=== PATIENT | female | born 1990 | race Caucasian/White ===

== ENCOUNTER 2019-03-22 10:47 | Emergency (ER) | payer OTHER ==
[2019-03-22 11:15] VITALS: BP 97/64; PULSE 60; TEMP 99.1; BMI 20.2
--- NOTE | 2019-03-22 12:02 | PDOC ---
History of Present Illness - General Chief Complaint: Migraine Headache Stated Complaint: WEIRD FEELING IN HEAD Time Seen by Provider: 03/22/19 10:55 History Source: Patient Exam Limitations: No Limitations - History of Present Illness Initial Comments: 03/22/19 11:59 28y F presents for evaluation of a 'strange sensation in her head'. Pt states she occasionally feels a 'strnge sensation in her head' that typically lasts for a few seconds, then goes away and recurrs occasionally - She is unable to further describe the pain, but notse that it is not painful, not uncomfortable, not lightheaded, not vertigo, not tingling, not sharp/ pressure, not like her migraines. pt also remembers feeling briefly being sob las tnight when she was sleeping, but resolved. no associated cp, cough, f/c, leg edema. pt denies any associated headache, lightehadedness, vision changes, numbness/ tingling/weakness, dysarthria, cp, palpitations, n/v, abd pain, back pain, neck pain, fever/chlls, cough, diarrhea, melena, bpr, urinary frequency, dysuria. Pt denies any calderón - went for a run today without other symptoms. Pt does endorses having occasoinal episodes of vertigo, where when she is sitting at he desk, she will feel a momentary episode of feeling off balance before resolving. No symptmos currently. Pt also notes that she has had a mass on her R shoulder for a while that was told it was a lipoma. it does not hurt. LMP 03/14 PMHx: Migraine patel social: denies ivdu PMD: [facility] Past History - Past Medical History Allergies/Adverse Reactions: Allergies Allergy/AdvReac Type Severity Reaction Status Date / Time egg Allergy Verified 03/22/19 10:49 Home Medications: Ambulatory Orders NK [No Known Home Medication] 03/22/19 COPD: No - Suicide/Smoking/Psychosocial Hx Smoking History: Never smoked Have you smoked in the past 12 months: No Information on smoking cessation initiated: No Hx Alcohol Use: Yes (WEEKENDS) Review of Systems - Review of Systems Able to Perform ROS?: Yes Comments:: 03/22/19 12:03 Constitutional - no reported Fever, Chills, HEENT: no reported vision changes, sore throat Respiratory: no reported cough, sob, hemoptysis Cardiac: no reported chest pain, palpitations, light headedness, leg swelling Abd/GI: no reported abd pain, nausea, vomiting, blood per rectum, melena, diarrhea : no reported dysuria, frequency, discharge Musculskelatal - no reported back pain, joint swelling skin - +arm mass no reported bruising, erythema, rash neurological: +weird intermittent sensation in her head no reported headache, numbness, focal weakness, tingling, ataxia, hematologic: no reported easy bruising, easy bleeding *Physical Exam - Vital Signs Last Vital Signs Temp Pulse Resp BP Pulse Ox 99.1 F 60 20 97/64 100 03/22/19 10:48 03/22/19 10:48 03/22/19 10:48 03/22/19 10:48 03/22/19 10:48 - Physical Exam Comments: 03/22/19 12:05 GENERAL: The patient is awake, alert, and fully oriented, Nontoxic - in no acute distress. HEAD: Normocephalic, atraumatic. EYES: extraocular movements intact, sclera anicteric, conjunctiva clear. ENT: Normal voice, Moist mucous membranes. NECK: Normal range of motion, supple LUNGS: Breath sounds equal, clear to auscultation bilaterally. No wheezes, no rhonchi, no rales. HEART: Regular rate and rhythm, normal S1 and S2 without murmur, rub or gallop. ABDOMEN: Soft, nontender, . No guarding, no rebound. No CVA tenderness EXTREMITIES: ~5x5cm mass that is soft, nontender, non erythemsous, non indurated over the lateral aspect of R shoulder, Normal range of motion of extremities, no edema. NEUROLOGICAL: No facial assymetry, Normal speech, moving all 4 ext spontnaeously and symmetrically, normal gait PSYCH: Normal mood, normal affect. SKIN: Warm, Dry, normal turgor, Medical Decision Making - Medical Decision Making 03/22/19 12:06 28y F hx of migraines presents for evaluation of several complaints including a 'weird sensation in her head', intermittent/episodic vertigo, sob, arm mass suspect her vrtigo may be bbpv - currently asymptmatic with intact neuro exam arm mass - c/w lipoma, no signs of abcess will refer pt to PMD for further mangement 03/22/19 12:10 I discussed the physical exam findings, ancillary test results and final diagnoses with the patient. I answered all of the patient's questions. The patient was satisfied with the care received and felt comfortable with the discharge plan and treatment plan. The patient will call their primary care physician within 24 hours to arrange follow-up and will return to the Emergency Department with any new, persistent or worsening symptoms. *DC/Admit/Observation/Transfer Diagnosis at time of Disposition: Lightheaded - Discharge Dispostion Disposition: HOME Condition at time of disposition: Improved Decision to Admit order: No - Referrals Referrals: Moustapha Clark MD [Staff Physician] - [facility] [place] [facility] [place] [Provider Group] - Patient Instructions Additional Instructions: Return to the emergency department immediately with ANY new, persistent or worsening symptoms. You MUST ollow up with a primary care doctor for a complete evaluation of your symptoms. Results were discussed with you. Please make sure your doctor reviews the results of your emergency evaluation. Print Language: EAST [place] - Post Discharge Activity
--- NOTE | 2019-03-22 16:57 | EKG ---
Test Reason : Blood Pressure : / mmHG Vent. Rate : 047 BPM Atrial Rate : 047 BPM P-R Int : 144 ms QRS Dur : 094 ms QT Int : 482 ms P-R-T Axes : 064 065 055 degrees QTc Int : 426 ms SINUS BRADYCARDIA OTHERWISE NORMAL ECG WHEN COMPARED WITH ECG OF 26-JUN-2001 22:30, PREVIOUS ECG IS PRESENT Confirmed by ORA CALDERÓN MD ([id number]) on 03/22/2019 4:57:05 PM Referred By: [facility] Confirmed By:ORA CALDERÓN MD
== END 2019-03-22 12:16 | disposition home or self-care (01) ==
LOC: FER 10:47
DX: R42 Dizziness and giddiness (principal)
CPT/HCPCS: 93005; 99282-25

== ENCOUNTER 2024-05-06 23:32 | Emergency (ER) | payer OTHER ==
[2024-05-06] MEDS ORDERED: FLUORESCEIN NA 1 EA STRIP ONE (23:55)
[2024-05-06] MEDS ORDERED: TETRACAINE 0.5% OPHTH SOLN 2 ML BOTTLE ONE (23:56)
[2024-05-07 00:08] VITALS: RESP 18
[2024-05-07] MEDS ORDERED: methylPREDNISolone NA SUCC 125 MG/2 ML VIAL ONE (01:16)
[2024-05-07] MEDS: methylPREDNISolone NA SUCC 125 MG/2 ML VIAL IVPB ONE (01:33)
[2024-05-07] MEDS: ACYCLOVIR INJECTION 500 MG in DEXTROSE 5%-WATER - 100 ML IVPB ONE (02:12)
[2024-05-07] MEDS: ACYCLOVIR INJECTION 600 MG in DEXTROSE 5%-WATER - 100 ML IVPB ONE (02:12)
[2024-05-07 02:45] LABS: BASO % 0.1 % (0-2.0); EOS % 0.1 % (0-4.5); HEMATOCRIT 33.4 % (32.4-45.2); HEMOGLOBIN 11.1 GM/dL (10.7-15.3); LYMPH % 14.8 % (8-40); MCH 29.6 pg (25.7-33.7); MCHC 33.1 g/dl (32.0-36.0); MEAN CELL VOLUME 89.3 fl (80-96); MEAN PLT VOLUME 8.2 fl (7.5-11.1); MONO % 10.5 % (3.8-10.2); NEUT % 74.5 % (42.8-82.8); PLATELET COUNT 199 10^3/uL (134-434); POTASSIUM 3.2 mmol/L (3.5-5.1); RBC 3.74 M/mm3 (3.60-5.2); RDW 15.3 % (11.6-15.6); WHITE BLOOD COUNT 12.8 K/mm3 (4.0-10.0)
[2024-05-07 02:47] LABS: CALCIUM 8.9 mg/dL (8.5-10.1)
[2024-05-07 02:48] LABS: ALBUMIN 3.7 g/dl (3.4-5.0); BLOOD UREA NITROGEN 8.6 mg/dL (7-18)
[2024-05-07 02:51] LABS: CREATININE 0.9 mg/dL (0.55-1.3)
[2024-05-07 02:52] LABS: BILIRUBIN,TOTAL 0.2 mg/dL (0.2-1)
[2024-05-07] MEDS ORDERED: POTASSIUM CHLORIDE TABS 20 MEQ TABLET.ER (FP) PO ONE (03:53)
[2024-05-07] MEDS: POTASSIUM CHLORIDE TABS 20 MEQ TABLET.ER (FP) PO ONE (03:59)
[2024-05-07] MEDS ORDERED: ACETAMINOPHEN 325 MG TABLET (FP) PO PRN (04:57)
[2024-05-07] MEDS ORDERED: DOCUSATE SODIUM 100 MG CAPSULE (FP) PO PRN (04:57)
[2024-05-07 06:44] LABS: MAGNESIUM 1.9 mg/dL (1.8-2.4)
[2024-05-07 06:47] LABS: PHOSPHOROUS 2.3 mg/dL (2.5-4.9)
[2024-05-07 07:04] VITALS: BMI 21.1
[2024-05-07] MEDS: methylPREDNISolone NA SUCC 40 MG/1 ML VIAL IVPUSH SCH (10:04)
[2024-05-07] MEDS: ACYCLOVIR INJECTION 600 MG in DEXTROSE 5%-WATER - 100 ML IVPB SCH (10:05)
[2024-05-07] MEDS: GABAPENTIN 100 MG CAPSULE PO SCH (15:50)
[2024-05-08 08:02] LABS: CALCIUM 9.7 mg/dl (8.5-10.1); CREATININE 0.7 mg/dl (0.6-1.3); POTASSIUM 4.2 mmol/L (3.5-5.1)
[2024-05-08 09:07] LABS: HEMATOCRIT 38.3 % (32.4-45.2); HEMOGLOBIN 12.7 GM/dL (10.7-15.3); LYMPH % 7.3 % (8-40); MCH 29.6 pg (25.7-33.7); MCHC 33.1 g/dl (32.0-36.0); MEAN CELL VOLUME 89.4 fl (80-96); MEAN PLT VOLUME 8.8 fl (7.5-11.1); NEUT % 89.7 % (42.8-82.8); PLATELET COUNT 233 10^3/uL (134-434); RBC 4.29 M/mm3 (3.60-5.2); RDW 15.1 % (11.6-15.6); WHITE BLOOD COUNT 14.5 K/mm3 (4.0-10.0)
[2024-05-08] MEDS: ENOXAPARIN NA (PORCINE) 40 MG/0.4 ML DISP.SYRIN SQ SCH (09:46)
[2024-05-08] MEDS: LACTATED RINGERS SOLUTION 1,000 ML/1,000 ML INFUS.BAG IV SCH (21:42)
[2024-05-09 07:09] VITALS: TEMP 98.4
[2024-05-09 07:57] LABS: HEMATOCRIT 37.4 % (32.4-45.2); HEMOGLOBIN 11.9 G/dL (10.7-15.3); MCH 29.3 pg (25.7-33.7); MCHC 31.9 g/dl (32.0-36.0); MEAN CELL VOLUME 91.9 fl (80-96); MEAN PLT VOLUME 8.3 fl (7.5-11.1); PLATELET COUNT 200.3 10^3/uL (134-434); RBC 4.07 10^6/uL (3.60-5.2); RDW 16.2 % (11.6-15.6); WHITE BLOOD COUNT 8.6 10^3/uL (4.0-10.8)
[2024-05-09 08:19] LABS: ALBUMIN 3.7 g/dl (3.4-5.0); BILIRUBIN,TOTAL 0.4 mg/dl (0.2-1); CALCIUM 8.8 mg/dl (8.5-10.1); CREATININE 0.8 mg/dl (0.6-1.3); POTASSIUM 3.3 mmol/L (3.5-5.1); TOT PROT 6.1 g/dl (6.4-8.2)
[2024-05-09] MEDS: predniSONE 20 MG TABLET (UD) PO SCH (10:10)
[2024-05-09] MEDS: POTASSIUM CHLORIDE ORAL LIQUID 20 MEQ/15 ML PO ONE (10:11)
[2024-05-09 10:23] VITALS: BP 101/64; PULSE 56
== END 2024-05-09 14:02 | disposition home or self-care (01) ==
LOC: FER 23:32 → FM/S 05-07 05:38
PROVIDERS: ADMIT Internal Medicine; ATTEND Internal Medicine
PROC: 3E03329 Introduction of Other Anti-infective into Peripheral Vein, Percutaneous Approach (ICD-10-PCS; principal; 2024-05-07)
PROC: 3E033GC Introduction of Other Therapeutic Substance into Peripheral Vein, Percutaneous Approach (ICD-10-PCS; 2024-05-07)
DX: R29.810 Facial weakness (principal); R21 Rash and other nonspecific skin eruption; H92.01 Otalgia, right ear
CPT/HCPCS: 36415; 80048; 80053; 83735; 84100; 85025; 85027; 96365; 96375; 99284-25; G0378